=== PATIENT | female | born 1945 | race Caucasian/White ===

== ENCOUNTER 2023-03-04 10:20 | Emergency (ER) | payer OTHER, SELFPAY ==
[2023-03-04 10:26] VITALS: BP 151/89
--- NOTE | 2023-03-04 11:04 | EDRN ---
Person in HW and at this time this RN assumed care of this pt.
--- NOTE | 2023-03-04 11:28 | EDRN ---
Samuel HANKS w/ pt at this time.
[2023-03-04 11:48] VITALS: BMI 36.6
--- NOTE | 2023-03-04 12:01 | EDRN ---
Ice applied to R forehead and R hip.
--- NOTE | 2023-03-04 12:03 | EDRN ---
Pt is requesting a tylenol. WIll speak w/ I. Jolene HANKS. Pt has had xrays.
[2023-03-04] MEDS: TYLENOL 1000 MG PO (12:07)
--- NOTE | 2023-03-04 12:54 | ED.MUSCINJ ---
HPI-Injury
General
Chief Complaint: Fall
Source: patient
Exam Limitations: none
Time Seen by Provider: 03/04/23 11:20
Nursing documentation reviewed up to this point in time: agreed with
Travel History
Have you had any contact with someone who has COVID-19?: No
Do you have any symptoms of coronavirus? Fever > 100 degrees, chills, cough, shortness of breath, sore throat, loss of taste or smell, muscle aches, or headache?: No
History of Present Illness-Injury
Initial Injury comments:
77 yo female with h/o RA on daily low dose Prednisone and Celebrex, chronic right hip pain states she was leaning into the tub washing her hair when she stumbled, fell forward striking right forehead on tub and injured her right hip. She is not
anticoagulated. No LOC, denies headache, change in vision, n/v, weakness, numbness or tingling extremities. Was able to get up and ambulate afterwards but with worse than her usual right hip pain.
Past History
Past History
ED Past Medical History: HTN, Hypercholesterolemia and Other (Spinal stenosis, hemorrhoids, and cervical disc disease); Negative IDDM
ED Past Surgical History: Appendectomy, Gynecological (Hysterectomy, breast lumpectomy, tubal ligation, D&C), Orthopedic and Other (Hemorrhoidectomy)
Social History
Tobacco: Former smoker
Alcohol: None
Drug: None
Personal:
Living: with family
Employment: Retired
Family History
Family History: Hypertension
Review of Systems
Review of Systems
Allergies reviewed?: Yes
All Other Systems: ROS reviewed and negative except as documented in HPI and ROS
Cardiac: Denies syncope
ABD/GI: Denies nausea or vomiting
Musculoskeletal: Reports other (exacerbation of chronic right hip pain)
Skin: Reports other (bump and mild scrape right forehead)
Neurological: Denies dizzy, headache, weakness or numbness
Phy Exam
General Physical Exam
General Presentation: well appearing
General age: appears stated age
General Skin: warm and dry
General Habitus: normal
General Mental: alert
General Hydration: appears well hydrated
ENT Exam
ENT Exam: EOMI, TM's normal and normocephalic (mild swelling right forehead)
Eye Exam
Eye Exam: PERRL and conjunctiva normal
Cardiovascular Exam
Cardiovascular Exam: regular rate/rhythm
Heart Sounds: normal
Pulmonary Exam
Pulmonary Exam: lungs clear and chest non tender
Gastrointestinal Exam
Gastrointestinal Exam: non tender and soft
Neurological Exam
Neurological Exam: alert, oriented x3 and no motor deficits
Musculoskeletal Exam
Musculoskeletal Exam: neck pain, back pain, no edema, neuro vasc intact and other (lateral right hip tender to palpation. Adequate ROM of RLE with little expressed discomfort)
Psychiatric Exam
Psychiatric Exam: normal mood/affect
Injury Course
Orders/Labs/Results
Orders:
Orders
03/04/23 11:29
Hip, Right 2-3 Views [CR Hip - RT w/wo Pel 2-3 Vw*] Urgent
Comment:
Reason For Exam: Pain after fall
Include a pelvis x-ray?: Yes
03/04/23 12:05
Acetaminophen [Tylenol] 1,000 mg .ROUTE .STK-MED ONE
Acetaminophen [Tylenol] 1,000 mg PO NOW STA
MDM/Problems Addressed
Differential Diagnosis Includes:
hip fracture, arthritis, sprain
Contusion forehead, concussion, brain bleed
MDM/Problems Addressed:
77 yo female with h/o RA on daily low dose Prednisone and Celebrex, chronic right hip pain states she was leaning into the tub washing her hair when she stumbled, fell forward striking right forehead on tub and injured her right hip. She is not
anticoagulated. No LOC, denies headache, change in vision, n/v, weakness, numbness or tingling extremities. Was able to get up and ambulate afterwards but with worse than her usual right hip pain.
Xray right hip read initially by this examiner: No acute abnormality noted.
No LOC, no headache, no focal deficits, not anticoagulated, no indication for head CT
Pt OOB and ambulated with mild limp down hallway to BR independently
Final dx: soft tissue injury right hip, forehead contusion
*Critical Care Note
Total Time (30-74mins, 75-104mins- exclusive of procedures): Not Applicable
ED Attending Note
-
Portions of this chart may have been created with voice recognition software.� Occasional wrong word or��sound alike� substitutions may have occurred due to the inherent limitations of voice recognition software.
Discharge Plan
Departure
Patient Disposition: Home (Routine Discharge)
Date of Disposition: 03/04/23
Time of Disposition: 12:48
Patient with high blood pressure during this ER visit?: No
Condition: Good
Discharge Problem:
Fall from slip, trip, or stumble, Acute pain of right hip, Contusion of forehead
Instructions: Head Injury in Adults (DC), Contusion (DC), Hip Pain (DC)
Prescriptions:
No Action
calcium carbonate 500 MG tablet
1 tab PO Q48H
celecoxib 200 MG capsule
200 mg PO PRN PRN (Reason: pain)
prednisone 5 MG tablet
4 mg PO DAILY
alprazolam 0.5 MG tablet
0.25 mg PO HSPRN PRN (Reason: insomnia)
methotrexate sodium 2.5 MG tablet
15 mg PO TU
folic acid 1 MG tablet
1 mg PO DAILY
cholecalciferol (vitamin D3) 1,000 UNITS tablet
1,000 units PO DAILY
furosemide 20 MG tablet
10 mg PO DAILY
aspirin 325 MG tablet
325 mg PO DAILY
levofloxacin [Levaquin] 500 MG tablet
500 mg PO DAILY Qty: 3 0RF
Referrals:
Loc Bailey MD [Active] - As needed
Jonnathan Rosales Jr., DO [Family Provider] - As needed
Activity Restrictions/Additional Instructions:
As we discussed, I see nothing broken or out of place on your hip x-ray. Tylenol 1000 mg up to 3 times a day as needed for pain.
See Dr. Bailey if not a LOT better in one week
You have no sign of a significant head injury, no head CAT scan is needed at this time.
Return here immediately for vomiting more than once in one hour, confusion, headache that gets worse despite Tylenol.
Interventions
Interventions:
*Risk Screen - Suicide Last Done: 03/04/23 11:48
*General Assessment Last Done: 03/04/23 10:24
*Neglect/Abuse Screening Last Done: 03/04/23 11:48
ED- Fall Risk Assessment Last Done: 03/04/23 13:00
*ED COVID-19 Vaccine History Last Done: 03/04/23 10:24
*Nursing Disposition Last Done: 03/04/23 13:00
ED-Musculoskeletal Assessment Last Done: 03/04/23 11:48
ED- Neurological Assessment Last Done: 03/04/23 11:48
ED-Skin Assessment Last Done: 03/04/23 11:48
Discharge Date and Time
Discharge Date/Time: 03/04/23 13:00
== END 2023-03-04 13:00 | disposition home or self-care (01) ==
LOC: EMR 10:20
PROVIDERS: EMERGENCY PHYSICIAN Emergency Medicine; FAMILY PHYSICIAN Family Medicine
DX: S00.83XA Contusion of other part of head, initial encounter (principal); M25.551 Pain in right hip; R26.9 Unspecified abnormalities of gait and mobility; W01.198A Fall on same level from slipping, tripping and stumbling with subsequent striking against other object, initial encounter; Y93.E1 Activity, personal bathing and showering; Y92.002 Bathroom of unspecified non-institutional (private) residence as the place of occurrence of the external cause
CPT/HCPCS: 99283; 73502

== ENCOUNTER 2023-03-15 12:29 | Emergency (ER) | payer OTHER, SELFPAY ==
[2023-03-15 12:32] VITALS: BP 159/82
[2023-03-15 13:00] VITALS: BMI 24.5
--- NOTE | 2023-03-15 13:42 | ED.GENMED ---
History of Present Illness
<Macario Walton Jr., PA-C - Last Filed: 03/16/23 22:08>
General
Chief Complaint: Musculo-Skeletal Complaint
Source: patient
Exam Limitations: none
Time Seen by Provider: 03/15/23 12:50
Nursing documentation reviewed up to this point in time: agreed with
Travel History
Have you had any contact with someone who has COVID-19?: No
Do you have any symptoms of coronavirus? Fever > 100 degrees, chills, cough, shortness of breath, sore throat, loss of taste or smell, muscle aches, or headache?: No
History of Present Illness
History of Present Illness:
77-year-old female with Jackie history of hypertension hyperlipidemia presenting to the emergency department today with concerns of right-sided hip discomfort with radiation to the groin from a fall over a week ago had an x-ray at the time without
signs of fracture. Has been able to ambulate but has been using a walker. Pain is worsening significant discomfort and difficulty ambulating at home secondary to pain. She has been taking Vicodin without relief. Denies numbness weakness chest
pain shortness of breath.
Past History
<Macario Walton Jr., PA-C - Last Filed: 03/16/23 22:08>
Past History
ED Past Medical History: HTN, Hypercholesterolemia and Other (Spinal stenosis, hemorrhoids, and cervical disc disease); Negative IDDM
ED Past Surgical History: Appendectomy, Gynecological (Hysterectomy, breast lumpectomy, tubal ligation, D&C), Orthopedic and Other (Hemorrhoidectomy)
Social History
Tobacco: Former smoker
Alcohol: None
Drug: None
Personal:
Living: with family
Employment: Retired
Family History
Family History: Hypertension
Review of Systems
<Macario Walton Jr., PA-C - Last Filed: 03/16/23 22:08>
Review of Systems
Allergies reviewed?: Yes
All Other Systems: ROS reviewed and negative except as documented in HPI and ROS
Phy Exam
<Macario Walton Jr., PA-C - Last Filed: 03/16/23 22:08>
Physical Exam
Physical Exam:
GENERAL: Alert , in no apparent distress
EYE: pupils equal and reactive
NECK: Supple, no significant adenopathy.
ENT: o/p clr, mmm.
CARDIAC: Regular rate and rhythm .
LUNGS: Clear breath sounds bilaterally, no acute respiratory distress, no wheezes/rales/rhonchi
ABDOMEN: Soft, without focal tenderness, no r/g, no cvat
NEUROLOGICAL: Alert and oriented, no focal neuro deficits
SKIN: Warm and dry, skin intact.
MUSCULOSKELETAL: No redness or swelling to the hip back pelvic area. Does have some discomfort to the pelvic region right hip no reproducible tenderness to the back no edema, well perfused.
PSYCH: Normal and appropriate interaction.
Course
<Macario Walton Jr., PA-C - Last Filed: 03/16/23 22:08>
Orders/Labs/Results
Orders:
Orders
03/15/23 12:50
Hip, Right 2-3 Views [CR Hip - RT w/wo Pel 2-3 Vw*] Urgent
Comment:
Reason For Exam: right hip pain after fall
Include a pelvis x-ray?: Yes
03/15/23 13:21
CT Pelvis W/o Iv Contrast Urgent
Comment:
Reason For Exam: pelvic/hip pain after fall, troubkle ambulating,
Oxycodone/Acetaminophen [Percocet 5/325] 1 tablet PO NOW STA
Pt Eval And Treat Urgent
Activity Level: Ambulate
03/15/23 14:10
Case Management Consult ONCE
Case Management Consult: VN/Home Care
Vital Signs
Initial and Last Documented VS:
Initial Vital Signs
Temp Pulse Resp BP Pulse Ox
98.3 F 93 18 159/82 100
03/15/23 12:32 03/15/23 12:32 03/15/23 12:32 03/15/23 12:32 03/15/23 12:32
Last Documented Vital Signs
Temp Pulse Resp BP Pulse Ox
98.6 F 82 16 125/71 99
03/15/23 17:51 03/15/23 17:51 03/15/23 17:51 03/15/23 17:51 03/15/23 17:51
<Harshad Arenas PA-C - Last Filed: 03/15/23 16:02>
Orders/Labs/Results
Orders:
Orders
03/15/23 12:50
Hip, Right 2-3 Views [CR Hip - RT w/wo Pel 2-3 Vw*] Urgent
Comment:
Reason For Exam: right hip pain after fall
Include a pelvis x-ray?: Yes
03/15/23 13:21
CT Pelvis W/o Iv Contrast Urgent
Comment:
Reason For Exam: pelvic/hip pain after fall, troubkle ambulating,
Oxycodone/Acetaminophen [Percocet 5/325] 1 tablet PO NOW STA
Pt Eval And Treat Urgent
Activity Level: Ambulate
03/15/23 14:10
Case Management Consult ONCE
Case Management Consult: VN/Home Care
Vital Signs
Initial and Last Documented VS:
Initial Vital Signs
Temp Pulse Resp BP Pulse Ox
98.3 F 93 18 159/82 100
03/15/23 12:32 03/15/23 12:32 03/15/23 12:32 03/15/23 12:32 03/15/23 12:32
Last Documented Vital Signs
Temp Pulse Resp BP Pulse Ox
98.6 F 82 16 125/71 99
03/15/23 17:51 03/15/23 17:51 03/15/23 17:51 03/15/23 17:51 03/15/23 17:51
<Macario Walton Jr., PA-C - Last Filed: 03/16/23 22:08>
MDM/Problems Addressed
MDM/Problems Addressed:
69-year-old female presenting to the emergency department today with concerns of right hip and groin to hurt after a fall a week ago. With ambulating. Neurovascularly intact no weakness. No fever vital signs unremarkable upon arrival. Initial
x-ray without signs of emergent injury. Plan for CT scan due to ongoing difficulty with ambulation. CT scan without evidence of acute fracture. PT evaluated the patient and patient was unable to ambulate. Case management consulted for potential
placement. Patient able to be placed. Stable condition throughout ER stay.
<Harshad Arenas PA-C - Last Filed: 03/15/23 16:02>
*Critical Care Note
Total Time (30-74mins, 75-104mins- exclusive of procedures): Not Applicable
<Harshad Arenas PA-C - Last Filed: 03/15/23 16:02>
Patient Management
Discussion with other providers: Other (Case management)
Escalation/DeEscalation of care consider admission/obs:
Received patient in signout pending possible placement at rehab facility at 1545 PM
Per case management patient was accepted at [facility] rehab facility. Will arrange for transportation there. Patient continues to rest comfortably at this time.
ED Attending Note
<Macario Walton Jr., PA-C - Last Filed: 03/16/23 22:08>
-
Portions of this chart may have been created with voice recognition software.� Occasional wrong word or��sound alike� substitutions may have occurred due to the inherent limitations of voice recognition software.
Discharge Plan
Departure
Patient Disposition: Penitentiary/SNF
Date of Disposition: 03/15/23
Time of Disposition: 15:57
Discharge Problem:
Acute pain of right hip, Ambulatory dysfunction
Prescriptions:
No Action
calcium carbonate 500 MG tablet
1 tab PO Q48H
celecoxib 200 MG capsule
200 mg PO PRN PRN (Reason: pain)
alprazolam 0.5 MG tablet
0.25 mg PO HSPRN PRN (Reason: insomnia)
methotrexate sodium 2.5 MG tablet
15 mg PO TU
folic acid 1 MG tablet
1 mg PO DAILY
cholecalciferol (vitamin D3) 1,000 UNITS tablet
1,000 units PO DAILY
furosemide 20 MG tablet
10 mg PO DAILY
aspirin 325 MG tablet
325 mg PO DAILY
Referrals:
Jonnathan Rosales Jr., DO [Family Provider] -
Interventions
Interventions:
*Risk Screen - Suicide Last Done: 03/15/23 12:32
*General Assessment Last Done: 03/15/23 13:00
*Neglect/Abuse Screening Last Done: 03/15/23 12:32
ED- Fall Risk Assessment Last Done: 03/15/23 13:00
*ED COVID-19 Vaccine History Last Done: 03/15/23 12:32
*Nursing Disposition Last Done: 03/15/23 17:51
ED-Musculoskeletal Assessment Last Done: 03/15/23 13:00
Discharge Date and Time
Discharge Date/Time: 03/15/23 17:53
[2023-03-15] MEDS: PERCOCET 5/325 1 TABLET PO (13:53)
--- NOTE | 2023-03-15 14:52 | CM ---
Addendum entered by Ceci Najera RN 03/15/23 15:57:
CM updated patient and patient's daughter with plan for transfer to [place].
Addendum entered by Ceci Najera RN 03/15/23 15:46:
[facility]
REPORT
[phone]
FAX
[phone]
Addendum entered by Ceci Najera RN 03/15/23 15:44:
[employer] Authorization for [facility]
[id number]
7 days Skilled Level 1
NRD
2/6
Fax Review to
[phone]
AMBULANCE AUTH for
[facility]
[id number]
Addendum entered by Ceci Najera RN 03/15/23 15:26:
Patient and daughter are agreeable to [place]. CM will call [facility] for authorization.
Addendum entered by Ceci Najera RN 03/15/23 15:19:
[facility] has accepted patient. Cm awaiting final approval from patient's daughter.
Original Note:
Cm was consulted for discharge planning. Patient off floor fot CT scan. CM initiated SNF referrals to [facility], [facility], [facility], and [facility]. CM will follow for acceptance.
--- NOTE | 2023-03-15 16:01 | EDRN ---
per case management and provider, the pt is to go to [facility], oil recovery unit operator is setting up transport now, the pt is resting in stretcher in the lowest position, side rails up x2 HOB elevated, pillow provided for the pts upper back, the pts
daughter is currently at the pts bedside, the pt denies needing anything at this time, will continue to monitor the pt closely
--- NOTE | 2023-03-15 17:35 | EDRN ---
this RN called [facility] at [phone] in attempt to give report on the pt coming to them, the front end driver at [facility] transferred this RN to the nurses station and there was no answer
--- NOTE | 2023-03-15 17:37 | EDRN ---
this RN attempted to call [facility] again at [phone] and the hotel front desk clerk staff transferred this RN to the nurses station and there was no answer, this RN gave report to [facility] transport
[2023-03-15 17:51] VITALS: BP 125/71
--- NOTE | 2023-03-15 17:51 | EDRN ---
this RN called [facility] again at [phone] and the front office java developer transferred this RN to the nurses station, this RN gave verbal report to the receiving nurse and notified them that the pt was on the way
== END 2023-03-15 17:53 ==
LOC: EMR 12:29
PROVIDERS: EMERGENCY PHYSICIAN Emergency Medicine; FAMILY PHYSICIAN Family Medicine
DX: M25.551 Pain in right hip (principal); R26.2 Difficulty in walking, not elsewhere classified
CPT/HCPCS: 99284; 72192; 73502

== ENCOUNTER → 2023-03-17 11:03 | Outpatient (REF) | payer OTHER, SELFPAY ==
[2023-03-17 11:32] LABS: Hematocrit 35.2 % (37.0-47.0); Hemoglobin 12.4 g/dL (12.0-16.0); Mean Corp Hgb Conc. 35.2 g/dL (33.0-37.0); Mean Corpuscular Hgb 32.6 pg (27.0-31.0); Mean Corpuscular Volume 92.6 fL (81.0-99.0); Mean Platelet Volume 9.4 fL (7.4-10.4); Platelet Count 288 10^3/uL (130-400); Red Cell Dist. Width 13.2 % (11.5-14.5); White Blood Cell Count 8.1 10^3/uL (4.8-10.8)
[2023-03-17 11:43] LABS: ALT (SGPT) 21 U/L (0-35); AST (SGOT) 26 U/L (14-36); Albumin 4.4 g/dl (3.5-5.0); Alkaline Phosphatase 74 U/L (38-126); Blood Urea Nitrogen 18 mg/dl (7-17); Calcium 8.9 mg/dl (8.4-10.2); Carbon Dioxide 26 mmol/L (22-30); Chloride 99 mmol/L (98-107); Glucose 105 mg/dl (70-99); Magnesium 2.4 mg/dl (1.6-2.3); Potassium 4.5 mmol/L (3.5-5.1); Sodium 131 mmol/L (135-145); Total Bilirubin 1.1 mg/dl (0.2-1.3); Total Protein 6.9 g/dl (6.3-8.2); eGFR > 60.00
[2023-03-17 11:58] LABS: Free T4 1.09 ng/dl (0.78-2.19)
[2023-03-17 12:29] LABS: Glycohemoglobin (HgbA1c) 5.9 % (4.0-5.6)
== END ==
LOC: OLABWHC 11:03
PROVIDERS: ATTENDING PHYSICIAN Internal Medicine
DX: M50.90 Cervical disc disorder, unspecified, unspecified cervical region (principal); H81.09 Meniere's disease, unspecified ear; M48.00 Spinal stenosis, site unspecified; M62.81 Muscle weakness (generalized); I10 Essential (primary) hypertension; E78.5 Hyperlipidemia, unspecified; M06.9 Rheumatoid arthritis, unspecified
CPT/HCPCS: 36415; 80053; 83036; 83735; 84439; 84443; 85027

== ENCOUNTER → 2023-03-19 07:33 | Outpatient (REF) | payer OTHER, SELFPAY | LOC: MRI 07:33 | PROVIDERS: ATTENDING PHYSICIAN Specialist; FAMILY PHYSICIAN Family Medicine; OTHER PHYSICIAN Family Medicine; REFERRING PHYSICIAN Internal Medicine | DX: M48.062 Spinal stenosis, lumbar region with neurogenic claudication (principal) | CPT/HCPCS: 72148; 73721 ==

== ENCOUNTER → 2023-05-17 10:03 | Outpatient (REF) | payer OTHER, SELFPAY ==
[2023-05-17 10:45] LABS: Hematocrit 24.5 % (37.0-47.0); Hemoglobin 8.2 g/dL (12.0-16.0); Mean Corp Hgb Conc. 33.5 g/dL (33.0-37.0); Mean Corpuscular Hgb 32.2 pg (27.0-31.0); Mean Corpuscular Volume 96.1 fL (81.0-99.0); Platelet Count 354 10^3/uL (130-400); Red Blood Cell Count 2.55 10^6/uL (4.20-5.40); Red Cell Dist. Width 13.6 % (11.5-14.5); White Blood Cell Count 7.2 10^3/uL (4.8-10.8)
[2023-05-17 11:49] LABS: Blood Urea Nitrogen 12 mg/dl (7-17); Calcium 8.3 mg/dl (8.4-10.2); Carbon Dioxide 25 mmol/L (22-30); Chloride 98 mmol/L (98-107); Glucose 97 mg/dl (70-99); Potassium 4.4 mmol/L (3.5-5.1); Sodium 130 mmol/L (135-145); eGFR > 60.00
== END ==
LOC: OLABP 10:03
PROVIDERS: ATTENDING PHYSICIAN Family Medicine
DX: D62 Acute posthemorrhagic anemia (principal); R26.2 Difficulty in walking, not elsewhere classified; M62.81 Muscle weakness (generalized); E87.1 Hypo-osmolality and hyponatremia; E66.9 Obesity, unspecified; M48.061 Spinal stenosis, lumbar region without neurogenic claudication; M54.9 Dorsalgia, unspecified
CPT/HCPCS: 36415; 80048; 85027

== ENCOUNTER 2023-07-14 09:55 | Outpatient (RCR) | payer OTHER, SELFPAY | END 2023-07-14 23:59 | disposition home or self-care (01) | LOC: RPT 09:55 | PROVIDERS: ATTENDING PHYSICIAN Neurological Surgery; FAMILY PHYSICIAN Family Medicine | DX: M54.59 Other low back pain (principal); M25.561 Pain in right knee; M25.562 Pain in left knee; M25.511 Pain in right shoulder; M25.512 Pain in left shoulder; Z98.1 Arthrodesis status | CPT/HCPCS: 97110; 97112; 97163; 97530 ==

== ENCOUNTER 2023-08-03 14:52 | Outpatient (RCR) | payer OTHER, SELFPAY | END 2023-08-03 23:59 | disposition home or self-care (01) | LOC: RPT 14:52 | PROVIDERS: ATTENDING PHYSICIAN Neurological Surgery; FAMILY PHYSICIAN Family Medicine | DX: Z47.89 Encounter for other orthopedic aftercare (principal); M54.59 Other low back pain; M25.561 Pain in right knee; M25.562 Pain in left knee; M25.511 Pain in right shoulder; M25.512 Pain in left shoulder; R26.89 Other abnormalities of gait and mobility; Z73.6 Limitation of activities due to disability; R20.2 Paresthesia of skin; M48.00 Spinal stenosis, site unspecified; R20.0 Anesthesia of skin; Z98.1 Arthrodesis status; Z96.651 Presence of right artificial knee joint | CPT/HCPCS: 97110; 97112; 97116; 97530 ==

== ENCOUNTER 2023-09-12 14:07 | Outpatient (RCR) | payer OTHER, SELFPAY | END 2023-09-12 23:59 | disposition home or self-care (01) | LOC: RPT 14:07 | PROVIDERS: ATTENDING PHYSICIAN Neurological Surgery; FAMILY PHYSICIAN Family Medicine | DX: M54.59 Other low back pain (principal); Z98.1 Arthrodesis status; M25.561 Pain in right knee; M25.562 Pain in left knee; M25.511 Pain in right shoulder; M25.512 Pain in left shoulder | CPT/HCPCS: 97110; 97116; 97530 ==

== ENCOUNTER → 2023-09-13 18:40 | Outpatient (REF) | payer OTHER, SELFPAY | LOC: WDC 18:40 | PROVIDERS: ATTENDING PHYSICIAN Family Medicine | DX: Z12.31 Encounter for screening mammogram for malignant neoplasm of breast (principal) | CPT/HCPCS: 77063; 77067 ==

== ENCOUNTER 2023-10-06 12:52 | Outpatient (RCR) | payer OTHER, SELFPAY | END 2023-10-06 23:59 | disposition home or self-care (01) | LOC: RPT 12:52 | PROVIDERS: ATTENDING PHYSICIAN Neurological Surgery; FAMILY PHYSICIAN Family Medicine | DX: M54.59 Other low back pain (principal); M25.561 Pain in right knee; M25.562 Pain in left knee; M25.511 Pain in right shoulder; M25.512 Pain in left shoulder; Z98.1 Arthrodesis status | CPT/HCPCS: 97110; 97112; 97116; 97530 ==

== ENCOUNTER 2023-11-10 12:42 | Outpatient (RCR) | payer OTHER, SELFPAY | END 2023-11-10 23:59 | disposition home or self-care (01) | LOC: RPT 12:42 | PROVIDERS: ATTENDING PHYSICIAN Neurological Surgery; FAMILY PHYSICIAN Family Medicine | DX: M54.59 Other low back pain (principal); M25.561 Pain in right knee; M25.562 Pain in left knee; M25.511 Pain in right shoulder; M25.512 Pain in left shoulder; M06.9 Rheumatoid arthritis, unspecified; M48.00 Spinal stenosis, site unspecified; Z73.6 Limitation of activities due to disability; R26.89 Other abnormalities of gait and mobility; Z98.1 Arthrodesis status | CPT/HCPCS: 97110; 97116; 97530 ==

== ENCOUNTER 2023-12-14 12:52 | Outpatient (RCR) | payer OTHER, SELFPAY | END 2023-12-14 23:59 | disposition home or self-care (01) | LOC: RPT 12:52 | PROVIDERS: ATTENDING PHYSICIAN Neurological Surgery; FAMILY PHYSICIAN Family Medicine | DX: Z47.89 Encounter for other orthopedic aftercare (principal); M54.59 Other low back pain; R26.89 Other abnormalities of gait and mobility; M25.561 Pain in right knee; M25.562 Pain in left knee; M25.511 Pain in right shoulder; M25.512 Pain in left shoulder; Z73.6 Limitation of activities due to disability; M06.9 Rheumatoid arthritis, unspecified; M48.00 Spinal stenosis, site unspecified; Z98.1 Arthrodesis status | CPT/HCPCS: 97110; 97112; 97116 ==

== ENCOUNTER → 2024-06-27 08:19 | Outpatient (REF) | payer OTHER, SELFPAY ==
[2024-06-27 10:15] LABS: ALT (SGPT) 17 U/L (0-35); AST (SGOT) 21 U/L (14-36); Alkaline Phosphatase 56 U/L (38-126); Blood Urea Nitrogen 18 mg/dl (7-17); Calcium 9.1 mg/dl (8.4-10.2); Carbon Dioxide 26 mmol/L (22-30); Chloride 104 mmol/L (98-107); Glucose 94 mg/dl (70-99); Potassium 4.6 mmol/L (3.5-5.1); Sodium 137 mmol/L (135-145); Total Bilirubin 0.8 mg/dl (0.2-1.3); eGFR > 60.00
== END ==
LOC: REG 08:19
PROVIDERS: ATTENDING PHYSICIAN Internal Medicine Rheumatology
DX: M06.4 Inflammatory polyarthropathy (principal)
CPT/HCPCS: 36415; 80053

== ENCOUNTER → 2024-07-24 08:11 | Outpatient (REF) | payer OTHER, SELFPAY | LOC: RAD 08:11 | PROVIDERS: ATTENDING PHYSICIAN Internal Medicine Rheumatology | DX: M06.4 Inflammatory polyarthropathy (principal) | CPT/HCPCS: 76882 ==

== ENCOUNTER → 2024-10-02 15:02 | Outpatient (REF) | payer OTHER, SELFPAY | LOC: RAD 15:02 | PROVIDERS: ATTENDING PHYSICIAN Family Medicine | DX: M79.89 Other specified soft tissue disorders (principal) | CPT/HCPCS: 93971 ==